=== PATIENT | female | born 1970 | race Two or more races ===

== ENCOUNTER → 2024-10-24 | Outpatient (CLI) | payer MEDICAID, SELFPAY | END | disposition home or self-care (01) | LOC: SMRI 14:00 | PROVIDERS: PCP Nurse Practitioner Primary Care; Referring Provider Nurse Practitioner Primary Care; Visit Provider Nurse Practitioner Primary Care | DX: Z53.8 Procedure and treatment not carried out for other reasons (principal); R41.89 Other symptoms and signs involving cognitive functions and awareness ==

== ENCOUNTER → 2024-11-11 | Outpatient (CLI) | payer MEDICAID, SELFPAY ==
--- NOTE | 2024-11-11 14:45 | XR_ITS ---
Examination: MRI of brain without intravenous contrast. MRI brain with intravenous contrast. Date and time of exam:November 11, 2024 1540 hrs. Indications: Increasing memory loss cognitive impairment the last 6 months with headaches blurred vision and dizziness Technique: Multiple axial and sagittal images of the brain to been obtained. Siemens high-resolution 1.52 Sabine short bore scanner utilized. Sagittal sections, T1 weighted images, TR 500, TE 14, are performed. Axial sections proton-density and T2-weighted images have been obtained. Inversion recovery axial images, TR 9260, TE 111, TR 2500. Diffusion weighted images, axial sections, TR 4800, TE 128, B value 1000. Axial sections, ADC map, TR 4800, TE 128. Axial and coronal images were also obtained post 11 cc gadolinium administered intravenously. Findings:: Enlargement of the sella turcica is not present. The optic chiasm and infundibular stalk are not remarkable. There is no localized enlargement of the medulla or kya. Fourth ventricle and cerebellar tonsils appear normal in position. No subacute area of hemorrhage density is seen. Fourth ventricle is midline. Mass in the cerebellopontine angle region is not evident. 7th and 8th nerve complexes exhibit symmetry Globes are symmetrical Orbital musculature including medial lateral rectus muscles do not exhibit abnormality Increased white matter signal is not seen Effacement of the cortical sulcal markings is not identified. Mass effect upon the ventricular system is not identified. Diffusion-weighted images demonstrate no focus of restricted diffusion Contrast images demonstrate no abnormal cerebellar or cerebral enhancement Impression: No for acute hemorrhage mass effect or midline shift No acute infarct No MR findings diagnostic for demyelinating disease Chronic ethmoid sinusitis
== END | disposition home or self-care (01) ==
PROVIDERS: PCP Nurse Practitioner Primary Care; Referring Provider Nurse Practitioner Primary Care; Visit Provider Nurse Practitioner Primary Care
DX: J32.2 Chronic ethmoidal sinusitis (principal)
CPT/HCPCS: 70553; A9579

== ENCOUNTER → 2024-12-03 | Outpatient (CLI) | payer MEDICAID, SELFPAY ==
--- NOTE | 2024-12-03 14:30 | XR_ITS ---
Examination: Retroperitoneal ultrasound, complete Technique: Multiple high resolution grayscale images of the retroperitoneum obtained, including kidneys and bladder. Exam date and time:December 03, 2024 1414 hours INDICATIONS: Intermittent right flank pain beginning 2 months ago. FINDINGS: Right kidney 9.3 x 3.8 x 4.1 cm renal cortex 1.7 cm Minimal hydronephrosis Left kidney 9.1 x 4.5 x 4.7 cm cortex 2.2 cm Mild to moderate left hydronephrosis No renal calculi Bladder prevoid volume 64 cc postvoid volume 60 cc IMPRESSION: Minimal right hydronephrosis Mild to moderate left hydronephrosis
== END | disposition home or self-care (01) ==
LOC: CDIM 13:54
PROVIDERS: PCP Nurse Practitioner Primary Care; Referring Provider Nurse Practitioner Primary Care; Visit Provider Nurse Practitioner Primary Care
DX: N13.39 Other hydronephrosis (principal)
CPT/HCPCS: 76770

== ENCOUNTER → 2024-12-10 | Outpatient (CLI) | payer MEDICAID, SELFPAY ==
--- NOTE | 2024-12-10 09:30 | XR_ITS ---
Examination: Screening digital mammography, bilateral Computer aided detection 3-D breast Tomosynthesis, bilateral Date and time of exam: December 10, 2024 at 0857 hours Comparison May 30, 2016 Indication: Screening Technique: Nonmagnified MLO, CC views of the breasts to been obtained, reconstructed from 3-D Tomosynthesis images. R2 computer aided detection program utilized for evaluation of suspicious masses and/or abnormal calcifications. 3-D Tomosynthesis images obtained. Findings: The breasts are heterogeneously dense, which may obscure small masses 12 mm focal asymmetry upper left breast MLO view, 5.8 cm from the nipple Impression: BI-RADS Category 0: Incomplete: Need additional imaging evaluation 12 mm focal asymmetry upper left breast MLO view, 5.8 cm from the nipple, recommend follow-up spot tomographic views upper outer quadrant left breast left breast sonography to complete the workup.
== END | disposition home or self-care (01) ==
LOC: CDIM 08:42
PROVIDERS: PCP Nurse Practitioner Primary Care; Referring Provider Nurse Practitioner Primary Care; Visit Provider Nurse Practitioner Primary Care
DX: Z12.31 Encounter for screening mammogram for malignant neoplasm of breast (principal); R92.8 Other abnormal and inconclusive findings on diagnostic imaging of breast; N64.89 Other specified disorders of breast
CPT/HCPCS: 77063; 77067

== ENCOUNTER → 2025-03-17 | Outpatient (CLI) | payer MEDICAID, SELFPAY ==
--- NOTE | 2025-03-17 09:30 | XR_ITS ---
Examination: Diagnostic digital mammography, unilateral, left Computer aided detection 3-D breast Tomosynthesis, unilateral Date and time of exam: March 17, 2025 0931 hours INDICATIONS: Mammogram December 10, 2024 12 mm focal asymmetry upper left breast MLO view Technique: Nonmagnified MLO, CC views of the left breast have been obtained, reconstructed from 3-D Tomosynthesis images. R2 computer aided detection program utilized for evaluation of suspicious masses and/or abnormal calcifications. 3-D Tomosynthesis images obtained. Findings: The breast is heterogeneously dense, which may obscure small masses Mild focal asymmetry upper left breast MLO view remains Impression: BI-RADS category 3: Probably benign findings Recommend 1 additional 6 month left mammogram follow-up
== END | disposition home or self-care (01) ==
PROVIDERS: PCP Nurse Practitioner Primary Care; Referring Provider Nurse Practitioner Primary Care; Visit Provider Nurse Practitioner Primary Care
DX: R92.332 Mammographic heterogeneous density, left breast (principal)
CPT/HCPCS: 77061; 77065; G0279

== ENCOUNTER 2025-07-27 18:05 | Emergency (ER) | payer MEDICAID, SELFPAY ==
--- NOTE | 2025-07-27 18:12 | EKG_ITS ---
[facility] Test Date: 2025-07-27 Pat Name: JOSSY PARK Department: Room: - Gender: Female Data Designer: : 1970 Requested By: ED Temporary Provider Order Number: [id number] Reading MD: ED Temporary Provider Measurements Intervals [place] Rate: 54 P: 54 VT: 154 QRS: 36 QRSD: 90 T: 83 QT: 444 QTc: 421 Interpretive Statements SINUS BRADYCARDIA WITH OCCASIONAL VENTRICULAR PREMATURE COMPLEXES NONSPECIFIC T-WAVE ABNORMALITY No previous ECG available for comparison /store/S0/[id number].pdf
[2025-07-27 18:29] VITALS: BP 111/47; PULSE 54; RESP 14; O2SAT 97
[2025-07-27 18:43] VITALS: BMI 24.0
--- NOTE | 2025-07-27 19:09 | PD.EDSYNC ---
ED Syncope RME/HPI General Chief Complaint: General Adult/Misc Complain Stated Complaint: FAINTED Time Seen by Provider: 07/27/25 19:08 Arrival date/time: 07/27/25 18:05 RME / HPI RME / HPI narrative: Dr. Walker?s Main ED Evaluation: 54yo female with a history of orthostatic hypotension, off of midodrine for the last 3 days presenting after having a bried syncopal episode at home after feeling lightheaded and letting herself to the ground, shortly after attempted to sit in the chair and syncopized. No seizure acitivity or urinary/bowel incontinence. Patient has had similar episodes in the past, but has not had any episodes in the last one year. No fever, chills, nausea, vomiting, or diarrhea. Denies anteceding illness. PMH includes orthostatic hypotension, bradycardia, no DM or known CAD. PSH unremarkable. Nondrinker. Nonsmoker. No illicit drugs. NKDA. Related Data Home Medications ?Medication ?Instructions ?Recorded ?Confirmed midodrine 10 mg tablet 10 mg PO TID 07/27/25 07/27/25 Previous Rx's ?Medication ?Instructions ?Recorded cefdinir 300 mg capsule 300 mg PO BID 3 days #6 caps 07/27/25 Allergies Allergy/AdvReac Type Severity Reaction Status Date / Time No Known Allergies Allergy Verified 07/27/25 18:07 Review of Systems Review of Systems Systems Reviewed: All systems reviewed, normal except as documented Past Medical History Past Medical History CARDIAC: Positive Hypercholesterolemia and Hypotension; Negative Congestive Heart Failure RESPIRATORY: Negative Chronic Obstructive Pulmonary Disease (COPD) GENITOURINARY: Negative Renal Disease ENDOCRINE: Negative Diabetes Mellitus Type 1 or Diabetes Mellitus Type 2 Social History SMOKING STATUS: Never smoker ED Exam Narrative Physical exam: GENERAL APPEARANCE: somnolent, but easily arousable, no acute distress VITALS: All vitals were reviewed and the pulse ox is 97% on room air, which is normal according to my interpretation. Notably bradycardic. HEENT: Normocephalic, atraumatic; pupils equal, round, reactive to light; EOMI; mucous membranes pink, moist; oropharynx clear NECK: Supple LUNGS: CTABL; no wheezes, no rales, no rhonchi HEART: Bradycardic, regular rhythm; normal S1, S2; no murmurs ABDOMEN: non distended; soft, mild epigastric tenderness, no guarding BACK: no CVA tenderness EXTREMITIES: atraumatic; no edema NEUROLOGIC: awake; alert and oriented x4; cranial nerves II-XII grossly intact; no focal sensory or motor deficits PSYCHIATRIC: appropriate mood and affect SKIN: warm, dry, normal color; no rashes Course Quality Measures none Orders Category Date Time Status Business Executive STAT Care 07/27/25 19:22 Active Continuous Pulse Oximetry ONCE Care 07/27/25 19:22 Completed EKG (ED ONLY) *Do not use* NOW Care 07/27/25 18:12 Completed EKG (ED ONLY) *Do not use* NOW Care 07/27/25 19:22 Completed Insert IV NOW Care 07/27/25 18:43 Active Insert IV NOW Care 07/27/25 19:22 Active Insert IV STAT Care 07/27/25 19:22 Active EKG (ED Only) Stat Exams 07/27/25 18:12 Draft EKG (ED Only) Stat Exams 07/27/25 19:22 Draft XR chest 1V portable Stat Exams 07/27/25 19:22 Completed B-Type Natriuretic Peptide Stat Lab 07/27/25 18:40 Completed CBC Stat Lab 07/27/25 18:40 Completed Comprehensive Metabolic Panel Stat Lab 07/27/25 18:40 Completed Magnesium Stat Lab 07/27/25 18:40 Completed TSH [Thyroid Stimulating Hormone] Stat Lab 07/27/25 18:40 Completed Troponin I Stat Lab 07/27/25 18:40 Completed Troponin I Stat Lab 07/27/25 21:25 Completed Urinalysis, C/S if Indicated Stat Lab 07/27/25 21:08 Completed Aspirin Chew Med 07/27/25 19:22 Discontinued 324 mg PO X1 ONE Potassium Chloride [K-Dur] Med 07/27/25 20:52 Discontinued 40 meq PO X1 ONE Sodium Chloride 0.9% 1000 ml [Ns] 1,000 ml Med 07/27/25 19:22 Discontinued IV 999 mls/hr Oxygen Delivery NOW RT 07/27/25 19:22 Active Vital Signs Vital signs: Vital Signs Pulse Rate 54 L 07/27/25 18:29 Respiratory Rate 14 07/27/25 18:29 Blood Pressure 111/47 L 07/27/25 18:29 Pulse Oximetry (%) 97 07/27/25 18:29 Oxygen Delivery Method Room Air 07/27/25 18:29 Syncope MDM Narrative [facility] Narrative:: Scribe Attestation: 07/27/25 Nilam Boateng am scribing for and in the presence of Dr. Walker. 54yo female with a history of orthostatic hypotension, off of midodrine for the last 3 days presenting after having a bried syncopal episode at home after feeling lightheaded and letting herself to the ground, shortly after attempted to sit in the chair and syncopized. No seizure activity or urinary/bowel incontinence. Please see PE findings. Lab markers demonstrate normal CBC. Chemritries show signs of dehydration and hypokalemia. UA with equivocal evidence of infection. Patient placed on monitoring and evaluation advisor, IV established, and was hydrated to correct volume deficit. Patient remained bradycardic throughtout ED course, although blood pressure gradually increased to 120 systolic range. Patient will be counseled regarding compliance with midodrine. Suspect syncope secondary to orthostasis. No signs of cardiac insult. Patient is stable to be discharged home. May consider outpatient antibiotics for equivocal UTI. Patient data External records reviewed:: [facility] previous records (Per chart review, patient was seen here on 05/26/24 for generalized body aches.) Clinical information provided by:: patient Social determinants that could affect healthcare access:: none Patient has the following chronic illnesses:: HLD How is presenting disease/condition affected by chronic disease/condition?: uneffected by Evaluation data The following diagnostics were reviewed and interpreted by me:: lab results, radiology exam(s) and EKG tracing(s) Lab and/or radiology exams considered but not ordered:: none Interpretation Summary: EKG done at 1831, sinus bradycardia, rate of 54, occasional PVC and PAC, no acute pathological ST segment changes, normal intervals, normal axis, according to my interpretation. Repeat EKG done at 2042, sinus bradycardia, rate of 47, occasional PAC, isoelectrical T wave changes in V1-V3 are unchanged, according to my interpretation. [facility] Report Signed Patient: JOSSY PARK Record#: [id number] Birthdate: 1970 Age/Sex: 54 / F Location: [facility] Attending Dr: Ordering Physician: Kit Khan DO Date of Service: 07/27/25 Procedure(s): XR chest 1V portable Accession Number(s): [id number] cc: Kit Khan DO; Andrea Chin MD; NO PRIMARY/FAMILY,PHYSICIAN~ Examination: AP chest single view Technique: AP portable semiupright chest single view Date and time: July 27, 2025 1956 hrs. Indications: Chest pain today. Findings: Normal heart size. Minor prominence of the pulmonary vasculature. No pneumonia or pulmonary edema. Impression: Minor prominence of pulmonary vasculature. Dictated By: Andrea Chin MD Signed By: <Electronically signed by Andrea Chin MD in OV> 07/27/252104 Medications / Prescriptions Medications or Prescriptions considered but not ordered:: none Medication administrations:: Medication Administration History Discontinued Medications Aspirin (Aspirin 81 Mg Chew) 324 mg PO X1 ONE Stop: 07/27/25 19:23 Last Admin: 07/27/25 19:50 Dose: 324 mg Documented By: GRACIE Sodium Chloride (Ns) 1,000 mls @ 999 mls/hr IV .Q1H1M ONE Stop: 07/27/25 20:22 Last Infusion: 07/27/25 20:50 Dose: Infused Documented By: Admin: 07/27/25 19:52 Dose: 999 mls/hr Documented By: GRACIE Potassium Chloride (Potassium Chloride 20 Meq Tabcr) 40 meq PO X1 ONE Stop: 07/27/25 20:53 Last Admin: 07/27/25 21:13 Dose: 40 meq Documented By: GRACIE see above Consultations Consultation(s) initiated? (list below): No Diagnosis Syncope Differential Diagnosis: syncope due to orthostatic hypotension, vasovagal syncope, dehydration and other (electrolyte abnormality) Most likely diagnosis given after review of the tests above:: see clinical impression below Admission Indicated Admission indicated?: not indicated Admission Request Was there a request for admission?: No Disposition Plan Disposition Plan: Discharge Discharge Attestation Discharge Attestation: The patient and all family members were given an opportunity to ask questions and understood the discharge instructions. Discharge instructions specifically effects, indications for sooner follow up or return to the emergency department, and the expected course of current diagnosis. Patient condition: Stable Discharge Plan Plan Patient Disposition: HOME (Self Care) Discharge Disposition comment: Stable Prescriptions/Referrals Prescriptions/Med Rec: New cefdinir 300 mg capsule 300 mg PO BID 3 Days Qty: 6 0RF No Action midodrine 10 mg tablet 10 mg PO TID Rx Instructions: do not give last dose of day after 6PM or within 4 hrs of bedtime Referrals: No Primary/Family,Physician [Primary Care Provider] - In 1 week Problem List Clinical Impression: Syncope due to orthostatic hypotension, Acute dehydration, UTI (urinary tract infection) Patient/Caregiver Discharge Instructions Discharge Activity: activity as tolerated Education Materials: Urinary Tract Infections in Women, Dehydration, Orthostatic Hypotension Print Language: Slovak Stand Alone Forms: Radha Award Info., Patient Portal Info Letter
--- NOTE | 2025-07-27 19:22 | XR_ITS ---
Examination: AP chest single view Technique: AP portable semiupright chest single view Date and time: July 27, 2025 1956 hrs. Indications: Chest pain today. Findings: Normal heart size. Minor prominence of the pulmonary vasculature. No pneumonia or pulmonary edema. Impression: Minor prominence of pulmonary vasculature.
--- NOTE | 2025-07-27 19:22 | EKG_ITS ---
[facility] Test Date: 2025-07-27 Pat Name: JOSSY PAKR Department: Room: - Gender: Female Promotions Executive: : 1970 Requested By: Kit West Order Number: [id number] Reading MD: Kit West Measurements Intervals [place] Rate: 47 P: 68 TX: 160 QRS: 26 QRSD: 88 T: 75 QT: 467 QTc: 415 Interpretive Statements SINUS BRADYCARDIA WITH OCCASIONAL VENTRICULAR PREMATURE COMPLEXES NONSPECIFIC T-WAVE ABNORMALITY Compared to ECG 07/27/2025 18:31:12 No significant changes /store/S0/[id number].pdf
[2025-07-27] MEDS: ASPIRIN 81 MG CHEW 324 MG PO (19:50)
[2025-07-27] MEDS: SODIUM CHLORIDE 0.9% 1000 ML 1,000 ML 999 ML IV (19:52)
[2025-07-27 20:11] LABS: Basophils # (Auto) 0.0 Thou/mm3 (0.0-0.2); Basophils % (Auto) 1 % (0-2.5); Eosinophils # (Auto) 0.1 Thou/mm3 (0.0-0.5); Eosinophils % (Auto) 2 % (0-10); Hematocrit 37.8 % (36.0-46.0); Hemoglobin 12.3 g/dL (12.0-16.0); Immature Granulocytes Auto 0.01 Thou/mm3 (0.00-0.00); Lymphocytes # (Auto) 2.7 Thou/mm3 (1.0-4.8); Lymphocytes % (Auto) 48 % (10-50); Mean Corpuscular HGB Conc 32.5 g/dl (31.0-37.0); Mean Corpuscular Hemoglobin 29.0 pg (25.0-35.0); Mean Corpuscular Volume 89 fL (80-100); Monocytes # (Auto) 0.4 Thou/mm3 (0.0-0.8); Monocytes % (Auto) 8 % (0-12); Neutrophils # (Auto) 2.2 Thou/mm3 (1.8-7.7); Neutrophils % (Auto) 41 % (37-80); Nucleated Red Blood Cell # 0.00 Thou/mm3 (0.00-0.00); Nucleated Red Blood Cell % 0 /100 WBC (0); Platelet Count 181 Thou/mm3 (140-440); RDW Standard Deviation 42.4 fL (36.4-46.3); Red Blood Count 4.24 Miln/mm3 (4.00-5.20); White Blood Count 5.5 Thou/mm3 (3.6-11.0)
[2025-07-27 20:33] LABS: Alanine Aminotransferase 14 U/L (10-49); Albumin, Serum 4.5 gm/dL (3.5-5.0); Albumin/Globulin Ratio 2.3 (1.2-2.2); Alkaline Phosphatase 68 U/L (46-116); Anion Gap 12 (7-16); Aspartate Amino Transferase 24 U/L (0-34); BUN/Creatinine Ratio 19 Ratio (12-20); Bilirubin,Total 0.5 mg/dL (0.3-1.2); Blood Urea Nitrogen 21 mg/dL (9-23); Calcium 9.7 mg/dL (8.3-10.6); Calcium (Corrected) 9.7 mg/dL (8.5-10.1); Carbon Dioxide 26.5 mMol/L (20.0-31.0); Chloride 111 mMol/L (98-107); Creatinine (Component) 1.1 mg/dL (0.6-1.3); Estimated Creatinine Clearance 47.2 mL/min (>60); Globulin 2.0 gm/dL (2.3-3.5); Glucose 132 mg/dL (74-106); Magnesium 1.9 mg/dL (1.6-2.6); Osmolality,Calculated 301 (275-295); Potassium 3.0 mMol/L (3.4-5.1); Sodium 149 mMol/L (136-145); Thyroid Stimulating Hormone 3.31 uIU/mL (0.55-4.78); Total Protein 6.5 gm/dL (5.7-8.2); Troponin I < 0.020 ng/mL (0.0-0.045); eGFR 59 See Note
[2025-07-27 20:34] LABS: B-Type Natriuretic Peptide < 20 pg/mL (0-100)
[2025-07-27 20:45] VITALS: PULSE 54; RESP 100
[2025-07-27 20:47] VITALS: BP 129/54; PULSE 51; RESP 16; O2SAT 100
[2025-07-27 21:20] LABS: Collection Type, Urine Clean Catch; Squamous Epithelial Cell,Urine 0 /hpf (0-5)
[2025-07-27 21:31] LABS: Bacteria,Urine Rare; Bilirubin,Urine Negative (Negative); Blood,Urine Negative (Negative); Clarity,Urine Clear (Clear/Hazy); Color,Urine Lt-Yellow (Lt Yel-Yel); Culture Indicated,Urine Not Indicated; Glucose, Urine Negative (Negative); Ketones,Urine Negative (Negative); Leukocyte Esterase,Urine Positive (Negative); Nitrite,Urine Negative (Negative); PH,Urine 6.0 (5.0-7.0); Protein,Urine Negative (Neg - Trace); RBC,Urine 2 /hpf (0-3); Specific Gravity,Urine 1.024 (1.001-1.035); Urobilinogen,Urine Negative mg/dL (0.0-1.0); WBC,Urine 3 /hpf (0-5)
[2025-07-27 21:51] LABS: Troponin I < 0.020 ng/mL (0.0-0.045)
[2025-07-27 22:46] VITALS: BP 120/59; PULSE 53; RESP 17; TEMP 36.7; O2SAT 96
== END 2025-07-27 22:54 | disposition home or self-care (01) ==
PROVIDERS: Emergency Provider Emergency Medicine
DX: N39.0 Urinary tract infection, site not specified (principal); I95.1 Orthostatic hypotension; E86.0 Dehydration; E87.6 Hypokalemia; R00.1 Bradycardia, unspecified
CPT/HCPCS: 36415; 71045; 80053; 81001; 83735; 83880; 84443; 84484; 85025; 93005; 96360; 99283; J7030; A9270

== ENCOUNTER → 2025-08-06 | Outpatient (CLI) | payer MEDICAID, SELFPAY ==
--- NOTE | 2025-08-06 13:33 | XR_ITS ---
Examination: Lumbar spine, 5 views Technique: Lumbar spine AP, lateral, coned lateral lower lumbar spine, bilateral obliques 5 views Exam date and time: August 06, 2025 1344 hours, comparison October 23, 2017 INDICATIONS: Patient fell backward with injury to lower back July 27, 2025, history low back pain years with lumbar spine surgery 3 years ago. FINDINGS: Prominent osteopenia Transpedicular lumbar stabilization L4-L5 Minimal anterolisthesis L3 on L4 No lumbar fracture Mild lumbar disc narrowing above the fusion site L3-L4 IMPRESSION: No lumbar fracture
--- NOTE | 2025-08-06 13:33 | XR_ITS ---
Examination: Cervical spine 3 views Technique one AP lateral coned AP odontoid cervical spine 3 views Date and time: August 06, 2025 1350 hours INDICATIONS: Patient fell July 27, 2025 with injury to the neck, neck pain FINDINGS: Adequate alignment cervical vertebral bodies. No cervical fracture. Intact odontoid. Advanced degenerative disc disease C5-C6 IMPRESSION: Advanced degenerative disc disease C5-C6
--- NOTE | 2025-08-06 13:33 | XR_ITS ---
Examination: Thoracic spine 3 views Technique one AP lateral coned lateral upper dorsal spine 3 views Date and time: August 06, 2025 1354 hours INDICATIONS: Patient fell backward July 27, 2025 with injury to the mid back, mid back pain. FINDINGS: Prominent osteopenia No acute thoracic fracture. Mild diffuse thoracic disc narrowing IMPRESSION: No acute fracture
== END | disposition home or self-care (01) ==
LOC: CDIM 13:15
PROVIDERS: PCP Nurse Practitioner Primary Care; Referring Provider Nurse Practitioner Primary Care; Visit Provider Nurse Practitioner Primary Care
DX: M50.322 Other cervical disc degeneration at C5-C6 level (principal); S19.9XXA Unspecified injury of neck, initial encounter; S39.92XA Unspecified injury of lower back, initial encounter; W19.XXXA Unspecified fall, initial encounter; S29.9XXA Unspecified injury of thorax, initial encounter
CPT/HCPCS: 72040; 72070; 72110